=== PATIENT | male | born 1930 | race Hispanic/Latino ===

== ENCOUNTER 2017-01-21 08:47 | Emergency (ER) | payer MEDICARE, BC ==
[2017-01-21 08:52] VITALS: BMI 37.8
[2017-01-21 08:54] VITALS: PULSE 93; RESP 16; TEMP 98; O2SAT 100
--- NOTE | 2017-01-21 09:43 | ED PDOC ---
Syncope/Near Syncope/Dizziness Time Seen by Provider: 01/21/17 09:09 Chief Complaint (Nursing): Dizziness/Lightheaded History Per: Patient (Lightheaded/dizziness at home. Checked BP at home and found to be elevated. Denies headache, chest pain or SOB. Dizziness was mild. No peripheral weakness or parasthesias.) Onset/Duration Of Symptoms: Days (1) Activity At Onset Of Symptoms: Sitting Associated Symptoms Preceding Syncopal Episode: No Predromal Symptoms (Sudden Onset) Seizure Or Post-ictal Symptoms: None Possible Causative Factor(s): Vertigo Fall Associated With With Symptoms: No Severity: Mild Pain Scale Rating Of: 0 Past Medical History Vital Signs: Last Vital Signs Temp 98.0 F 01/21/17 08:52 Pulse 93 H 01/21/17 08:52 Resp 16 01/21/17 08:52 BP 124/76 01/21/17 08:52 Pulse Ox 100 01/21/17 08:52 - Medical History PMH: No Chronic Diseases - Family History Family History: States: Unknown Family Hx - Home Medications Home Medications: Ambulatory Orders Medication Instructions Recorded Meclizine [Meclizine*] 25 mg PO Q8 #15 tab 01/21/17 - Allergies Allergies/Adverse Reactions: Allergies Allergy/AdvReac Type Severity Reaction Status Date / Time No Known Allergies Allergy Verified 01/21/17 09:14 Review of Systems ROS Statement: Except As Marked, All Systems Reviewed And Found Negative Cardiovascular: Negative for: Chest Pain, Palpitations Neurological: Positive for: Dizziness. Negative for: Weakness, Numbness, Headache Physical Exam - Reviewed Nursing Documentation Reviewed: Yes Vital Signs Reviewed: Yes - Physical Exam Appears: Positive for: Non-toxic, No Acute Distress Head Exam: Positive for: ATRAUMATIC, NORMAL INSPECTION, NORMOCEPHALIC Skin: Positive for: Normal Color, Warm, DRY Eye Exam: Positive for: EOMI, Normal appearance, PERRL ENT: Positive for: Normal ENT Inspection Neck: Positive for: Normal, Painless ROM Cardiovascular/Chest: Positive for: Regular Rate, Rhythm Respiratory: Positive for: CNT, Normal Breath Sounds Gastrointestinal/Abdominal: Positive for: Normal Exam, Bowel Sounds, Soft Back: Positive for: Normal Inspection Extremity: Positive for: Normal ROM Neurologic/Psych: Positive for: Alert, Oriented - ECG O2 Sat by Pulse Oximetry: 100 Disposition - Clinical Impression Clinical Impression: Vertigo - Patient ED Disposition Is Patient to be Admitted: No Counseled Patient/Family Regarding: Studies Performed, Diagnosis, Need For Followup, Rx Given - Disposition Referrals: [facility] [Outside] Disposition: Routine/Home Disposition Time: 11:01 Condition: FAIR Prescriptions: Meclizine [Meclizine*] 25 mg PO Q8 #15 tab Instructions: Vertigo (ED) Forms: [employer] ([employer])
[2017-01-21 13:11] VITALS: BP 127/71
--- NOTE | 2017-01-22 19:56 | CARD ---
APPROVED REPORT EKG Measurement Heart [id number] <Conclusion> Normal sinus rhythm Right bundle branch block Inferior infarct, age undetermined Abnormal ECG
== END 2017-01-21 11:17 | disposition home or self-care (01) ==
LOC: H.ER 08:47
DX: R42 Dizziness and giddiness (principal); I10 Essential (primary) hypertension